=== PATIENT | female | born 1960 | race Caucasian/White ===

== ENCOUNTER → 2025-01-31 | Outpatient (REF) | payer OTHER ==
[2025-01-31 12:59] LABS: HEMATOCRIT 48.5 % (36.0-47.0); HEMOGLOBIN 15.3 g/dl (12.0-15.5); MEAN CORPUSCULAR HEMOGLOBIN 28.9 pg (27.0-33.0); MEAN CORPUSCULAR HGB CONC 31.5 g/dl (32.0-36.5); MEAN CORPUSCULAR VOLUME 91.7 fl (80.0-96.0); PLATELET COUNT, AUTOMATED 261 10^3/uL (150-450); RED BLOOD COUNT 5.29 10^6/uL (4.00-5.40); WHITE BLOOD COUNT 7.4 10^3/uL (4.0-10.0)
[2025-01-31 13:01] LABS: ALBUMIN 3.6 G/DL (3.2-5.2); ALKALINE PHOSPHATASE 93 U/L (35-104); ALT/SGPT 24 U/L (7.0-40); AST/SGOT 13 U/L (<34); BLOOD UREA NITROGEN 16 MG/DL (9-23); CALCIUM LEVEL 9.1 MG/DL (8.3-10.6); CARBON DIOXIDE LEVEL 29 MMOL/L (20-31); CHLORIDE LEVEL 97 MMOL/L (98-107); CHOLESTEROL LEVEL 292 MG/DL (<200); CHOLESTEROL RISK RATIO 7.93 (<5); CREATININE FOR GFR 0.62 MG/DL (0.55-1.30); GLOMERULAR FILTRATION RATE > 60.0 (>45); GLUCOSE, FASTING 372 MG/DL (74-106); HDL CHOLESTEROL 36.8 MG/DL (>40); LDL CHOLESTEROL 195.6 MG/DL (<100); NON-HDL-C 255.2 MG/DL; POTASSIUM SERUM 4.4 MMOL/L (3.5-5.1); SODIUM LEVEL 134 MMOL/L (136-145); TOTAL PROTEIN 7.9 G/DL (5.7-8.2); TRIGLYCERIDES LEVEL 298 MG/DL (<150)
[2025-01-31 13:18] LABS: HEMOGLOBIN A1c 13.4 % (4.0-6.0)
[2025-01-31 13:27] LABS: CREATININE, URINE 67.4 MG/DL; MAU/CREAT RATIO 7.4 MCG/MG (0.0-30.0)
== END ==
LOC: M LAB REF 11:51
PROVIDERS: ATTEND Nurse Practitioner Family
DX: E11.9 Type 2 diabetes mellitus without complications (principal); E66.811 Obesity, class 1; Z11.9 Encounter for screening for infectious and parasitic diseases, unspecified

== ENCOUNTER → 2025-06-06 | Outpatient (REF) | payer OTHER ==
[~2025-06-06] MED LIST: ATOR1TAB21 PO; BUSP10TA PO; DOCU100C16 PO; LEVO100T5 PO; LISI20TA33 PO; TIRZ2.5P; VENL75CA47 PO
[2025-06-06 13:09] LABS: ALT/SGPT 18.0 U/L (7.0-40); AST/SGOT 15.0 U/L (<34); CHOLESTEROL LEVEL 127.0 MG/DL (<200); CHOLESTEROL RISK RATIO 4.13 (<5); LDL CHOLESTEROL 67.7 MG/DL (<100); NON-HDL-C 96.3 MG/DL; TRIGLYCERIDES LEVEL 143.0 MG/DL (<150)
[2025-06-06 13:38] LABS: ESTIMATED AVERAGE GLUCOSE 223.0 MG/DL (60-110)
== END ==
LOC: M LAB REF 12:16
PROVIDERS: ATTEND Nurse Practitioner Family
DX: E03.9 Hypothyroidism, unspecified (principal); E78.5 Hyperlipidemia, unspecified; E11.9 Type 2 diabetes mellitus without complications

== ENCOUNTER → 2025-08-07 | Outpatient (REF) | payer OTHER ==
[~2025-08-07] MED LIST changes: +DULO1CAP5 PO; +FAMO1TAB11 PO; +TIRZ10PE
[2025-08-07 17:02] LABS: BASO # 0.1 10^3/uL (0.0-0.2); BASO % 0.8 % (0.0-1.0); EOS # 0.2 10^3/uL (0.0-0.5); EOS % 1.9 % (0.0-3.0); LYMPH # 2.6 10^3/uL (1.5-5.0); LYMPH % 33.5 % (24.0-44.0); MONO # 0.5 10^3/uL (0.0-0.8); MONO % 6.3 % (2.0-8.0); NEUTROPHILS # 4.4 10^3/uL (1.5-8.5); NEUTROPHILS % 57.2 % (36.0-66.0); PLATELET COUNT, AUTOMATED 273 10^3/uL (150-450)
[2025-08-07 17:34] LABS: CALCIUM LEVEL 8.5 MG/DL (8.3-10.6); CARBON DIOXIDE LEVEL 27.0 MMOL/L (20-31); CHLORIDE LEVEL 102.0 MMOL/L (98-107); CREATININE FOR GFR 0.82 MG/DL (0.55-1.30); GLOMERULAR FILTRATION RATE 79.3 (>45); POTASSIUM SERUM 4.6 MMOL/L (3.5-5.1); SODIUM LEVEL 135.0 MMOL/L (136-145)
[2025-08-07 17:37] LABS: ESTIMATED AVERAGE GLUCOSE 183.0 MG/DL (60-110)
== END ==
LOC: M LAB REF 16:21
PROVIDERS: ATTEND Physician Assistant
DX: Z01.818 Encounter for other preprocedural examination (principal); E11.9 Type 2 diabetes mellitus without complications; E03.9 Hypothyroidism, unspecified

== ENCOUNTER 2025-08-08 09:49 | Day surgery (SDC) | payer OTHER ==
[~2025-08-08] VITALS: Ht 165.1 cm; Wt 102.1 kg
[~2025-08-08 09:49] MED LIST changes: +MIDAZOLAM INJ 2 MG/2 ML VIAL As Ordered ONE; +PHENYLEPHRINE 10% OPHTH SOL 5ML OD PRN
[2025-08-08] MEDS: OFLOXACIN 0.3 % (OCUFLOX) OPTH SOL 5ML OD ONE (11:55)
[2025-08-08] MEDS: LIDOCAINE 3.5% 1 ML OPHTH TOPICAL GEL OU ONE (12:07)
[2025-08-08] MEDS: CYCLOPENTOLATE 1% OPHTH SOLN 2 ML BTL OD SCH (12:07)
[2025-08-08] MEDS: TROPICAMIDE 1% OPHTH SOLN 15ML OD SCH (12:08)
[2025-08-08] MEDS: PHENYLEPHRINE 2.5% OPHTH SOL 2ML OD SCH (12:08)
[2025-08-08] MEDS: LIDOCAINE 1% SDV 5 ML VIAL As Ordered ONE (13:49)
[2025-08-08] MEDS: CEFUROXIME 1 MG/0.1 ML INTRACAMERAL INJ As Ordered ONE (13:49)
[2025-08-08] MEDS: BSS IRRIG/VANCO(10MG)/TOBRA(5MG)/EPINEPH(1:1000-0.5CC)500ML BAG-ORONLY As Ordered ONE (13:49)
[2025-08-08 13:55] VITALS: BP 135/75; TEMP 97; O2SAT 99
== END 2025-08-08 15:33 | disposition home or self-care (01) ==
LOC: M SDC 09:49
PROVIDERS: ATTEND Ophthalmology
DX: H25.11 Age-related nuclear cataract, right eye (principal); E11.9 Type 2 diabetes mellitus without complications; Z79.899 Other long term (current) drug therapy
CPT/HCPCS: 66984; J0697; J2250; J3010; V2632